=== PATIENT | female | born 1960 | race American Indian/Alaskan Native ===

== ENCOUNTER 2016-07-23 06:15 | Emergency (ER) | payer OTHER, BC ==
[2016-07-23] MEDS ORDERED: MORPHINE IM ONE (07:10)
[2016-07-23] MEDS ORDERED: ZOFRAN ODT PO ONE (07:11)
[2016-07-23 08:10] VITALS: BP 133/67
--- NOTE | 2016-07-23 08:28 | XRay Report ---
AP CHEST: HISTORY: chest pain AP view of the chest demonstrates a normal mediastinal and cardiac contour with clear lungs and normal bony and soft tissue structures. IMPRESSION: Unremarkable AP chest.
--- NOTE | 2016-07-23 08:28 | XRay Report ---
LEFT FEMUR: History: Left leg pain. AP and lateral views of the femur demonstrate normal mineralization and contours for this patient's age. No destructive changes are noted and the adjacent soft tissues are normal. IMPRESSION: Normal left femur.
--- NOTE | 2016-07-23 08:28 | XRay Report ---
AP PELVIS: History: Pelvic pain. AP view of the pelvis shows normal pelvic contour and soft tissues. The hips are symmetric and within normal limits as are the sacroiliac joints. IMPRESSION: Normal pelvis.
--- NOTE | 2016-07-23 08:44 | XRay Report ---
AP and lateral view of the lumbar spine. Findings: There are no fractures, subluxations, or other acute findings. The vertebral body heights and disc spaces are well-maintained. Alignment is normal. Impression: No acute findings.
--- NOTE | 2016-07-23 08:45 | XRay Report ---
LEFT TIBIA/FIBULA: AP and lateral views of the left tibia/fibula demonstrate normal mineralization and contours for this patient's age. No destructive changes are noted and the adjacent soft tissues are normal. IMPRESSION: Normal left tibia/fibula.
[2016-07-23] MEDS ORDERED: PERCOCET 5/325 PO ONE (09:48)
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
== END 2016-07-23 11:15 | disposition home or self-care (01) ==
LOC: ED 06:15
DX: S39.012A Strain of muscle, fascia and tendon of lower back, initial encounter (principal); S80.12XA Contusion of left lower leg, initial encounter; I10 Essential (primary) hypertension; E11.9 Type 2 diabetes mellitus without complications; K21.9 Gastro-esophageal reflux disease without esophagitis; V09.9XXA Pedestrian injured in unspecified transport accident, initial encounter; Y93.9 Activity, unspecified; Y99.9 Unspecified external cause status; Y92.410 Unspecified street and highway as the place of occurrence of the external cause
CPT/HCPCS: 71010; 72100; 72170; 73552; 73590; 96372; 99284; J2270; Q0162